=== PATIENT | male | born 1945 | race Caucasian/White ===

== ENCOUNTER 2017-09-11 15:48 | Inpatient (IN) ==
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
[2017-09-11] MEDS ORDERED: ceFAZolin 1,000 MG in Water for inj. (sterile) 20 ML 10 ML IVP ONE (17:44)
[2017-09-11] MEDS ORDERED: Gentamicin 130 MG in 0.9 % Sodium Chloride 100 ML IVPB ONE (17:47)
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
--- NOTE | 2017-09-11 19:34 | Anesthesia Evaluation PreOp ---
Date of Encounter: 09/11/17 Time of Encounter: 20:07 - Past History Planned Operation: I&D Right knee Cardiac History: SD, HTN, Hyperlipidemia, Arrhythmia (a flutter - ablation 3 years ago (no issues since)), Cardiac Surgery (CABG 2003) Pulmonary History: Denies Any Significant HX FRONT OFFICE MANAGER History: Denies Any Significant HX Other Medical History: Denies Any Significant HX Anesthesia History: No Prior Anesthetic Complications, Past Anesthesia ( bilateral knee replacements) Alcohol Use: rarely Drug use: none Medications and Allergies Cephalexin [Keflex] 500 mg PO QID #28 capsule 09/11/17 [Rx] 3 Allergy/AdvReac Type Severity Reaction Status Date / Time No Known Allergies Allergy Verified 09/11/17 15:52 - Meds/Allergy Pre-op Review Medications Reviewed: Yes Allergies Reviewed: Yes Beta Blockers on Current Med List: No Anesthesia Exam Last Vital Signs Temp 98.6 F 09/11/17 15:50 Pulse 51 09/11/17 15:50 Resp 16 09/11/17 15:50 BP 141/61 09/11/17 15:50 Pulse Ox 97 09/11/17 15:50 Weight: 77 kg - HEENT Pupil (Motor): Pupils equal, EOMI Mallampati: I Teeth: Normal Oral Opening: Greater than 3 - FRONT OFFICE MANAGER LOC: Oriented - Cardiac Rhythm: Regular Murmur: None - Pulmonary Breath Sounds: bilateral Clear Respiratory Effort: Symmetrical Anesthesia Assess/Plan ASA Score: 2 Modified [place] Scale for Level of Consciousness: Cooperative, oriented, and tranquil Anesthetic Plan: MAC Monitoring Plan: Standard Monitors Recovery Plan: PACU
[2017-09-11] MEDS ORDERED: Ringers Solution, Lactated 1,000 ML IVC SCH ×2 (19:57→22:52)
[2017-09-11] MEDS ORDERED: Bupivacaine/EPI 1:200k 0.5%PF 10 ML VIAL ONE (20:10)
[2017-09-11] MEDS ORDERED: Bacitracin/PolymyxinB OINT 14.17 GM TUBE TP ONE (20:12)
[2017-09-11] MEDS ORDERED: *HR* PHENYLEPHRINE 1,000 MCG/10 ML SYRINGE IVP ONE (20:37)
[2017-09-11] MEDS ORDERED: *HR* Propofol 200 MG/20 ML VIAL IVP ONE (20:56)
[2017-09-11] MEDS ORDERED: Propofol 500 MG/50 ML INFUS..BTL ONE (21:04)
[2017-09-11] MEDS ORDERED: Lidocaine -MPF 2% 2 ML VIAL ONE (21:04)
[2017-09-11] MEDS ORDERED: Naloxone 0.4 MG/ML INJ IVP PRN (21:29)
[2017-09-11] MEDS ORDERED: *HR* HYDROcodone/Acet 5/325 mg TABLET PO PRN ×2 (21:29→22:52)
[2017-09-11] MEDS ORDERED: Acetaminophen 325 MG TABLET PO PRN (21:29)
[2017-09-11] MEDS ORDERED: 0.9 % Sodium Chloride 1,000 ML IVC SCH (21:30)
--- NOTE | 2017-09-11 21:40 | Operative Note ---
Date of procedure: 09/11/17 Pre-op diagnosis: Contaminated traumatic laceration right knee Post-op diagnosis: same Procedure: 1. Irrigation and debridement contaminated laceration right knee (8 cm) 2. Wound closure right knee (8 cm) Implants: None Complications: None Anesthesia: MAC, local Surgeon: Hector Wasserman Was there an regulatory assistant present: No Estimated blood loss (cc): 12 Tourniquet Time (Minutes): 0 Specimen: None Condition: stable (None) Disposition: PACU Procedure in Detail: Gross findings: Preoperative examination revealed a U shaped flap laceration directly over the patella on the right knee. This was directly over the patella where a previous midline incision from total knee arthroplasty was present. This measured approximately 8 cm in length and was centered nearly directly on the previous vertical incision. There was some contamination of the laceration with some debris. This is associated with traumatized skin edge especially involving the superior flap. There was no disruption of the patella tendon. The confluence of the quadriceps tendon onto the patella was disrupted slightly for about a centimeter and a half on the more lateral aspect of the patella. This was debrided and a repaired in a [id number] manner. The wound was obtained his tissue were debrided followed by wound closure without complicating features. Procedure: Patient was taken to the operating room and transferred to the operating table. Patient was now administered intravenous sedation by department of anesthesia. Right lower extremity was now prepped and draped in normal standard fashion with a tourniquet placed high about the upper thigh though the tourniquet was not utilized for the surgical procedure. Proximal to the wound the skin and subcutaneous tissue were infiltrated with ultimately a total of 30 mL of 0.5% Marcaine with epinephrine solution. The skin edges on both the inferior and superior aspect were debrided and cut back sharply with a scalpel blade creating fresh skin edges. This is now followed by debriding some devitalized subcutaneous tissue and removing any visible debris. Wound was now copiously irrigated with saline solution. Limited hemostasis was required with electrocautery. The area on the lateral aspect of the patella was debrided of some potentially devitalized tissue. This is then repaired in a [id number] manner with a buried knot stitch of 2-0 PDS. This is now followed by wound closure with 2-0 Prolene. Sterile dressings consisting of bacitracin Adaptic 4 x 4 sterile cast padding and Gregorio wraps are now applied and secured. Patient was now transferred from the operating table hospital bed and transported to the postanesthesia care unit in stable and satisfactory condition. All sponge and needle evidence for counts are correct. No specimens are sent for pathology.
--- NOTE | 2017-09-11 21:46 | Anesthesia Evaluation Post Op ---
Date of Encounter: 09/11/17 Time of Encounter: 21:46 - Vital Signs Vital Signs: Last Vital Signs Temp 98.3 F 09/11/17 21:20 Pulse 48 09/11/17 21:40 Resp 16 09/11/17 21:40 BP 121/73 09/11/17 21:40 Pulse Ox 97 09/11/17 21:40 - Lungs Lungs: Clear Ascult./Percussion - Airway Airway: Non-obstructed - Cardiovascular Regular Rate - Mental Status Mental Status: Alert & Oriented, Answers Appropriately - Pain Pain Scale: 2 - Nausea Vomiting Nausea Vomiting: Not Present - Hydration Hydration: NPO - Discharge PostOp Status: Transfer Patient to floor
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
[2017-09-12] MEDS ORDERED: ceFAZolin 2,000 MG in Water for inj. (sterile) 20 ML 10 ML IVP SCH
[2017-09-12] MEDS ORDERED: Gentamicin 20 MG/2 ML VIAL IVPB SCH
[2017-09-12] MEDS: Gentamicin 80 MG in 0.9 % Sodium Chloride 100 ML IVPB SCH ×2 (00:55→09:03)
[2017-09-12] MEDS: CeFAZolin Pre 2,000 MG/100 ML 2,000 MG/100 ML BAG IVPB SCH ×2 (00:55→09:03)
[2017-09-12 05:57] LABS: Bilirubin,Urine Negative (Negative); Blood,Urine Negative (Negative); Clarity,Urine Clear (Clear); Color,Urine Yellow (Yellow); Glucose,Urine (UA) Normal (Normal); Ketones,Urine Trace mg/dL (Negative); Leukocyte Esterase,Urine Negative (Negative); Nitrite,Urine Negative (Negative); Protein,Urine Negative (Neg-Trace); Specific Gravity,Urine 1.028 (1.010-1.025); Urobilinogen,Urine Normal (Normal)
[2017-09-12] MEDS ORDERED: *HR* Heparin 5,000 UNIT/ML VIAL SQ SCH (06:00)
[2017-09-12 06:53] LABS: Basophils % 0.8 %; Eosinophils # 0.1 K/mcL (0.0-0.6); Eosinophils % 2.5 %; Hematocrit 39.5 % (37.5-50.1); Hemoglobin 13.8 g/dL (12.9-16.9); Immature Granulocytes % 0.4 % (0-4); Lymphocytes # 1.1 K/mcL (0.6-4.6); Lymphocytes % 20.4 %; Mean Corpuscular HGB Conc 34.9 g/dL (31.6-35.5); Mean Corpuscular Hemoglobin 31.7 pg (28.0-33.3); Mean Corpuscular Volume 90.6 fL (83.0-100.0); Mean Platelet Volume 11.2 fL (9.4-12.4); Monocytes # 0.6 K/mcL (0.0-1.3); Monocytes % 11.5 %; Neutrophils # 3.4 K/mcL (1.6-8.9); Platelet Count 124 K/mcL (140-400); Red Blood Count 4.36 M/mcL (4.19-5.50); Red Cell Distribution Width 12.8 % (11.5-14.5); Segmented Neutrophils % 64.4 %
[2017-09-12 06:56] LABS: INR 1.2; Prothrombin Time 12.8 Seconds (9.4-12.1)
[2017-09-12 06:59] LABS: Activated Partial Thrombo Time 28.2 Seconds (26.0-36.0)
[2017-09-12 07:13] LABS: Alanine Aminotransferase 25 Units/L (7-52); Albumin 3.7 g/dL (3.5-5.7); Albumin/Globulin Ratio 1.4 (1.1-2.2); Alkaline Phosphatase 54 Units/L (34-104); Aspartate Amino Transferase 25 Units/L (13-39); BUN/Creatinine Ratio 24 (6-26); Bilirubin,Total 1.1 mg/dL (0.3-1.0); Blood Urea Nitrogen 22 mg/dL (8-23); Calcium 8.9 mg/dL (8.6-10.3); Carbon Dioxide 25 mEq/L (23-29); Chloride 106 mEq/L (98-107); Chol/HDL Ratio 2.1 (0-4.9); Cholesterol 124 mg/dL (< 200); Globulin 2.7 g/dL (2.4-3.5); Glucose 100 mg/dL (70-105); HDL Cholesterol 60 mg/dL (40-59); LDL Cholesterol,Calculated 54 mg/dL (0-99); Osmolality,Calculated 291 (280-300); Phosphorous 3.1 mg/dL (2.7-4.5); Sodium 139 mEq/L (136-145); Total Protein 6.4 g/dL (6.4-8.9); Triglycerides 49 mg/dL (< 150); eGFR For African Americans > 60 (> 60); eGFR For Non-African Americans > 60 (> 60)
[2017-09-12] MEDS ORDERED: CeFAZolin Pre 2,000 MG/100 ML 2,000 MG/100 ML BAG IVPB SCH (08:00)
--- NOTE | 2017-09-12 14:09 | Orthopedics Progress Note ---
Date of Encounter: 09/12/17 Time of Encounter: 14:06 - Assessment and Plan (1) Laceration Current Visit: Yes Status: Acute (2) Foreign body (FB) in soft tissue Current Visit: Yes Status: Acute Subjective Principal diagnosis: Contaminated wound right knee Interval history: 09/12/17. Patient is postop day #1 from irrigation and debridement and wound closure of a contaminated wound of the right knee. He is doing well. He is having some pain which required the use of oral narcotics. Vital signs are stable. Patient is afebrile. Dressings are clean dry and intact. Impression: POD #1 I&D and closure of right knee wound Recommendation: Patient was stable for discharge to home. I discussed with the patient that he is to maintain the current dressing until , postop day # 5 at which time he can remove the current dressings do some wound care with peroxide Neosporin and apply a new nonadherent dressing with Gregorio wrap. We discussed that he can ambulate though I do want him to limit his walking and especially limited flexion of the knee. I will need see him back in about 10 days' time. Would recommend discharge on oral antibiotics for about 10 days, Augmentin or clindamycin would be good choices. We will see him back sooner should any problems arise. Objective Vital signs: Vital Signs Temp Pulse Resp BP Pulse Ox 09/12/17 12:29 98.6 F 49 14 117/61 98 09/12/17 07:46 98.5 F 51 17 123/69 97 09/12/17 06:29 98.8 F 64 16 126/68 99 09/12/17 04:24 98.6 F 52 16 117/71 99 09/11/17 23:05 97.6 F 47 14 132/62 99 09/11/17 21:40 48 16 121/73 97 09/11/17 21:30 49 16 113/67 98 Intake and Output 09/11/17 09/12/17 09/12/17 23:59 07:59 15:59 Intake Total 644 / 644 Output Total 200 / 200 400 / 400 Balance -200 / -200 244 / 244 Intake: IV Fluids 404 / 404 Ancef Premix 2,000 MG/100 ML 2, 200 / 200 000 mg In 100 ml @ 200 mls/hr IVPB Q8HR [facility] Rx#:[id number] Garamycin 80 MG In 0.9 % Sodium 204 / 204 Chloride 100 ML @ 102 mls/hr IVPB Q8HR [facility] Rx#:[id number] Oral 240 / 240 Output: Urine 200 / 200 400 / 400 Other: Meal Lunch Percent of Meal Consumed 100% - Labs CBC & BMP: 09/12/17 06:18 09/12/17 06:18 Labs: Abnormal lab results Plt Count 124 K/mcL (140-400) L 09/12/17 06:18 PT 12.8 Seconds (9.4-12.1) H 09/12/17 06:18 Total Bilirubin 1.1 mg/dL (0.3-1.0) H 09/12/17 06:18 HDL Cholesterol 60 mg/dL (40-59) H 09/12/17 06:18 Ur Specific [place] 1.028 (1.010-1.025) H 09/12/17 05:30 Urine Ketones Trace mg/dL (Negative) H 09/12/17 05:30 - VTE Documentation of Mechanical Device: Venous foot pump, device Consult Discharge Plan - Plan Referrals: Ro Henley [Primary Care Provider] - Laurel Parrish [Family Provider] -
--- NOTE | 2017-09-12 15:35 | Discharge Summary ---
- NOTES TO OUTPATIENT PROVIDER Notes to Outpatient Provider: s/p irrigation and wound closure over right knee; Date of Encounter: 09/12/17 Time of Encounter: 11:45 - Discharge Diagnosis (1) CAD (coronary artery disease) Priority: Secondary Status: Chronic Qualifiers: Coronary Disease-Associated Artery/Lesion type: bypass graft [place] vs. transplanted heart: [place] heart Associated angina: without angina Qualified Code(s): I25.810 - Atherosclerosis of coronary artery bypass graft(s) without angina pectoris (2) Essential hypertension Priority: Secondary Status: Chronic (3) Foreign body (FB) in soft tissue Priority: Primary Status: Acute (4) Laceration Priority: Primary Status: Acute Hospital course: Mr. Nuñez is a 72 year old male with the above medical problems, who was admitted with right knee laceration and injury after sustaining a fall while on mountain biking. Patient has history of bilateral total knee arthroplasty. Right knee x-ray showed total knee arthroplasty without acute hardware complication. Orthopedic surgery was consulted, he underwent irrigation and debridement of contaminated laceration on right knee along with wound closure. He received prophylactic perioperative IV antibiotics while in the hospital and is cleared for discharge by orthopedics on oral antibiotics and pain medications , with outpatient follow-up. Activity restrictions were explained to the patient, by orthopedics. Discharge discussed with: patient, family - Time Spent with Patient Total time spent providing and/or coordinating discharge services: Greater than 30 minutes (40 min) - Discharge Medications Prescriptions: Amoxicillin/Clavulanate [Augmentin] 875 mg PO BIDWM #14 tablet HYDROcodone/Acet 5/325 mg [Jal 5-325 mg] 1 tab PO Q6H PRN 5 Days #10 tablet PRN Reason: Severe Pain Home Medications: Aspirin [Adult Aspirin Regimen] 81 mg PO HS 09/11/17 [History] Atorvastatin [Lipitor] 40 mg PO HS 09/11/17 [History] Lisinopril [Zestril] 10 mg PO DAILY 09/11/17 [History] Amoxicillin/Clavulanate [Augmentin] 875 mg PO BIDWM #14 tablet 09/12/17 [Rx] HYDROcodone/Acet 5/325 mg [Jal 5-325 mg] 1 tab PO Q6H PRN 5 Days #10 tablet [Rx] Allergies/Adverse Reactions: 3 Allergy/AdvReac Type Severity Reaction Status Date / Time No Known Allergies Allergy Verified 09/11/17 15:52 Date of admission: 09/11/17 21:29 Primary care physician: Ro Henley Discharging clinician: Julia Ayon Anticipated date of discharge: 09/12/17 - Constitutional Vitals: Temp Pulse Resp BP Pulse Ox 98.6 F 49 14 117/61 98 09/12/17 12:29 09/12/17 12:29 09/12/17 12:29 09/12/17 12:29 09/12/17 12:29 General appearance: Present: A&O X 3, answers questions appropriately - Cardiovascular Cardiovascular exam: Present: RRR, +S1, +S2. Absent: diastolic murmur, gallop, rubs, systolic murmur - Patient Status Disposition: Home, Self-Care Condition: Good Functional capacity at discharge: independent ambulation Overall status at discharge: patient is progressing back to baseline - Discharge Instructions Instructions: Deep Venous Thrombosis (DC) Follow Up With: Ro Henley [Primary Care Provider] - Laurel Parrish [Family Provider] - Additional Instructions: F/up with in 10 days- You will need to call for appointment. F/up with PCP in 1-2 weeks- You will need to call for appointment. Keep the current dressing until , postop day #5 at which time you can remove the current dressings and do some wound care with peroxide, Neosporin and apply a new nonadherent dressing with Gregorio wrap. You can ambulate but limit your walking and especially limited flexion of the knee* - Diet and Activity Activity: resume usual activities as tolerated (restrictions per Orthopedics recommendations) Diet: low fat, low cholesterol, low salt diet - VTE Documentation of Mechanical Device: Venous foot pump, device
[2017-09-12 16:02] VITALS: BP 125/75
[2017-09-12] MEDS ORDERED: Aspirin Enteric Coated 81 MG Tablet PO SCH (21:00)
== END 2017-09-12 16:56 | disposition home or self-care (01) | DRG 501 ==
LOC: 3NENU 15:48 → EMEROO 15:48 → 3NENU 18:23 → SUATTDRO 21:29
PROVIDERS: ADMIT Internal Medicine Nephrology; ATTEND Internal Medicine